=== PATIENT | male | born 1940 | race Caucasian/White ===

== ENCOUNTER → 2016-08-03 | Outpatient (CLI) | payer MEDICARE, OTHER ==
[~2016-08-03] MED LIST: ASPIRIN81 MG PO; CHLORASEPTIC177 ML PO; DIOVAN HCT 1601 EACH PO; LOPRESSOR 25 MG25 MG PO; NORCO 7.5-3251 EACH PO; ROCEPHIN 22 G/50 ML IV; TOPROL XL100 MG PO; XARELTO10 MG PO; ZOCOR40 MG PO
== END ==
LOC: LAB 11:16
DX: T84.50XD Infection and inflammatory reaction due to unspecified internal joint prosthesis, subsequent encounter (principal)
CPT/HCPCS: 36415; 86140